=== PATIENT | female | born 1970 | race African-American/Black ===

== ENCOUNTER 2018-06-18 12:23 | Inpatient (IN) | payer MEDICARE, MEDICAID ==
[~2018-06-18] VITALS: Ht 147.3 cm; Wt 71.2 kg
[~2018-06-18 12:23] MED LIST: ALBU18HF2 IH; ALBU6.7H INH; ALPR0.25 PO; AMLO5TAB4 PO; AMLO5TAB88 MT; BUSP15TA3 MT; MORP10CA8 MT; MORP15TA67 PO; TRAZ-213 MT; ZOLP5TAB8 PO
[2018-06-18] MEDS ORDERED: ALBUTEROL (0.083%) 2.5MG/3ML NEB HHN STA (12:27)
[2018-06-18] MEDS ORDERED: IPRATROPIUM BROMIDE (0.02%) 0.5MG/2.5ML NEB HHN STA (12:27)
[2018-06-18] MEDS ORDERED: METHYLPREDNISOLONE SOD SUCC 125 MG/2 ML VIAL IV STA (12:27)
[2018-06-18] MEDS ORDERED: IPRATROPIUM BROMIDE (0.02%) 0.5MG/2.5ML NEB ONE (12:35)
[2018-06-18] MEDS ORDERED: ALBUTEROL (0.083%) 2.5MG/3ML NEB ONE (12:35)
[2018-06-18] MEDS ORDERED: MAGNESIUM 2 G PREMIX 50 ML IV ONE (12:45)
[2018-06-18 13:05] LABS: BASOPHILS % 0.5 % (0.0-2.0); EOSINOPHILS % 7.6 % (0.0-5.0); HEMATOCRIT. 47.3 % (36.0-48.0); HEMOGLOBIN. 16.1 g/dL (12.0-16.0); MEAN CORPUSCULAR HEMOGLOBIN 31.2 pg (28.0-32.0); MEAN CORPUSCULAR VOLUME 91.5 fL (81.0-99.0); MEAN PLATELET VOLUME 8.3 fl (7.4-10.4); NEUTROPHILS % 51.9 % (40.0-76.0); PLATELET 277 x1000/uL (130-400); RED BLOOD CELL COUNT 5.16 mill/uL (4.2-5.4)
[2018-06-18 13:13] LABS: CHLORIDE 107 mEq/L (98-107)
[2018-06-18] MEDS ORDERED: ALBUTEROL (0.5%) 2.5MG/0.5ML NEB HHN ONE (14:00)
[2018-06-18] MEDS ORDERED: MAGNESIUM/ALUMINUM HYDROXIDE/SIMETHICONE 30ML UDC PO PRN (16:30)
[2018-06-18] MEDS ORDERED: GUAIFENESIN 200MG/10ML SUGAR FREE UDC PO PRN (16:30)
[2018-06-18] MEDS ORDERED: NA PHOS,M-B/NA PHOS,DI-BA ENEMA 118ML PR PRN (16:30)
[2018-06-18] MEDS ORDERED: ACETAMINOPHEN 650MG SUPP PR PRN (16:30)
[2018-06-18] MEDS ORDERED: LORAZEPAM 0.5MG TABLET PO PRN (16:30)
[2018-06-18] MEDS ORDERED: IPRATROPIUM/ALBUTEROL 0.5-3(2.5)MG/3ML NEB INH PRN ×2 (16:30)
[2018-06-18] MEDS: HYDROCODONE/ACETAMINOPHEN 5/325MG TABLET PO PRN (18:16)
[2018-06-18] MEDS ORDERED: HYDROMORPHONE HCL/PF 2MG/ML CPJ IV NR (20:30)
[2018-06-18 22:17] VITALS: BP 141/93
[2018-06-18] MEDS ORDERED: DULO30CA51 PO (22:44)
[2018-06-18] MEDS ORDERED: OXYC-105 PO (22:46)
[2018-06-18] MEDS ORDERED: AMIT100T2 PO (22:47)
[2018-06-18] MEDS ORDERED: AMOX1TAB16 PO (22:48)
[2018-06-18] MEDS ORDERED: BUPR-84 PO (22:50)
[2018-06-18] MEDS ORDERED: P20 PO (22:52)
[2018-06-18] MEDS ORDERED: UMEC1DIS IH (22:53)
[2018-06-18] MEDS ORDERED: ALBU18HF2 IH (22:54)
[2018-06-18] MEDS: AMLODIPINE 5MG TABLET PO SCH (23:00)
[2018-06-18] MEDS: ENOXAPARIN 40MG/0.4ML SYR SUBCUT SCH (23:00)
[2018-06-18] MEDS: GABAPENTIN 100MG CAPSULE PO SCH (23:37)
[2018-06-18] MEDS: METHYLPREDNISOLONE SOD SUCC 40 MG/ML VIAL IV SCH (23:37)
[2018-06-18] MEDS: FAMOTIDINE 20MG/2ML VIAL IV SCH (23:38)
[2018-06-18] MEDS: LEVOFLOXACIN 500MG PREMIX 100 ML IV SCH (23:38)
[2018-06-19] VITALS (7 sets, daily range): BP systolic 128–148; BP diastolic 79–95
[2018-06-19] MEDS: HYDROMORPHONE HCL/PF 2MG/ML CPJ IV PRN ×5 (01:04→23:20)
[2018-06-19] MEDS: IPRATROPIUM/ALBUTEROL 0.5-3(2.5)MG/3ML NEB HHN SCH ×7 (01:20→23:46)
[2018-06-19] MEDS: ZOLPIDEM TARTRATE 5MG TABLET PO PRN (01:51)
[2018-06-19] MEDS: HYDROCORTISONE ACETATE 25MG SUPP PR SCH ×2 (04:36→22:52)
[2018-06-19 04:58] LABS: CLARITY URINE CLOUDY (CLEAR); COLOR URINE YELLOW (YELLOW); KETONES URINE 1+ (NEGATIVE); LEUKOCYTE ESTERASE URINE NEGATIVE (NEGATIVE); NITRITE URINE NEGATIVE (NEGATIVE); OCCULT BLOOD URINE NEGATIVE (NEGATIVE); PROTEIN URINE 1+ (NEGATIVE); SPECIFIC GRAVITY URINE 1.044 (1.005-1.030); UROBILINOGEN URINE 0.2 E.U./dL (0.2-1.0)
[2018-06-19 04:59] LABS: *AMPHETAMINES SCREEN URINE NEGATIVE (NEGATIVE); *BARBITURATES SCREEN URINE NEGATIVE (NEGATIVE); *BENZODIAZEPINES SCREEN URINE NEGATIVE (NEGATIVE); *COCAINE SCREEN URINE NEGATIVE (NEGATIVE); METHADONE URINE SCREEN NEGATIVE (NEGATIVE)
[2018-06-19 05:00] LABS: PHENCYCLIDINE URINE SCREEN NEGATIVE (NEGATIVE)
[2018-06-19 05:01] LABS: CANNABINOID URINE SCREEN PRESUMTIVE POSITIVE (NEGATIVE); OPIATES URINE SCREEN PRESUMTIVE POSITIVE (NEGATIVE)
[2018-06-19] MEDS: METHYLPREDNISOLONE SOD SUCC 40 MG/ML VIAL IV SCH ×3 (05:15→21:09)
[2018-06-19] MEDS: DIPHENHYDRAMINE 50MG/ML VIAL IV PRN ×3 (06:24→21:22)
[2018-06-19 06:58] LABS: BASOPHILS % 0.1 % (0.0-2.0); HEMATOCRIT. 41.2 % (36.0-48.0); HEMOGLOBIN. 13.9 g/dL (12.0-16.0); LYMPHOCYTES % 10.5 % (20.0-50.0); MEAN CORPUSCULAR HEMOGLOBIN 30.5 pg (28.0-32.0); MEAN CORPUSCULAR VOLUME 90.1 fL (81.0-99.0); MEAN PLATELET VOLUME 8.6 fl (7.4-10.4); MONOCYTES % 1.3 % (2.0-8.0); NEUTROPHILS % 88.1 % (40.0-76.0); PLATELET 303 x1000/uL (130-400); RED BLOOD CELL COUNT 4.58 mill/uL (4.2-5.4)
[2018-06-19 07:08] LABS: CHLORIDE 104 mEq/L (98-107)
[2018-06-19 07:22] LABS: LDL CHOLESTEROL 82 mg/dL (5-100)
[2018-06-19 07:23] LABS: HDL CHOLESTEROL 61 mg/dL (40-59); T4 FREE 0.88 ng/dL (0.76-1.46)
[2018-06-19] MEDS: BUDESONIDE 0.5MG/2ML NEB HHN SCH ×2 (08:29→20:36)
[2018-06-19] MEDS: NICOTINE 7MG PATCH TD SCH (09:00)
[2018-06-19] MEDS: AMLODIPINE 5MG TABLET PO SCH (09:00)
[2018-06-19] MEDS: GABAPENTIN 100MG CAPSULE PO SCH ×2 (09:07→21:09)
[2018-06-19] MEDS: LORATADINE 10MG TABLET PO SCH (09:07)
[2018-06-19] MEDS: FAMOTIDINE 20MG/2ML VIAL IV SCH ×2 (09:07→21:09)
[2018-06-19 11:54] LABS: BG BASE EXCESS 0.6 mmol/L (-2.0-2.0); BG CARBOXYHEMOGLOBIN 0.6 % (0.5-1.5); BG DEOXYHEMOGLOBIN 5.3 % (0.0-5.0); BG FRACTION INSPIRED OXYGEN 21; BG HCO3 ACT 23.7 mmol/L (22.0-26.0); BG METHEMOGLOBIN 0.2 % (0.0-1.5); BG OXYGEN SATURATION 94.7 % (92.0-98.5); BG OXYHEMOGLOBIN 93.9 % (94.0-97.0); BG PCO2 33.6 mmHg (35.0-45.0); BG PH 7.467 (7.350-7.450); BG PO2 70.2 mmHg (75.0-100.0); BG SAMPLE SITE RIGHT RADIAL; BG TOTAL HEMOGLOBIN 14.1 g/dL (12.0-18.0); BG VENT MODE ROOM AIR
[2018-06-19] MEDS: LOSARTAN POTASSIUM 50 MG TABLET PO SCH (18:21)
[2018-06-19] MEDS: MONTELUKAST SODIUM 10MG TABLET PO SCH (18:21)
[2018-06-19] MEDS ORDERED: LORAZEPAM 0.5MG TABLET PO PRN (20:30)
[2018-06-19] MEDS: ENOXAPARIN 40MG/0.4ML SYR SUBCUT SCH (21:00)
[2018-06-20] VITALS (7 sets, daily range): BP systolic 125–143; BP diastolic 81–98
[2018-06-20] MEDS: ZOLPIDEM TARTRATE 5MG TABLET PO PRN ×2 (00:18→23:41)
[2018-06-20] MEDS: LEVOFLOXACIN 500MG PREMIX 100 ML IV SCH (00:55)
[2018-06-20] MEDS: IPRATROPIUM/ALBUTEROL 0.5-3(2.5)MG/3ML NEB HHN SCH ×5 (03:16→21:43)
[2018-06-20] MEDS: METHYLPREDNISOLONE SOD SUCC 40 MG/ML VIAL IV SCH ×3 (06:16→23:03)
[2018-06-20 08:20] LABS: HEMATOCRIT 41.7 % (36.0-48.0); MEAN CORPUSCULAR HEMOGLOBIN 30.7 pg (28.0-32.0); MEAN CORPUSCULAR VOLUME 91.6 fL (81.0-99.0); PLATELET 319 x1000/uL (130-400); RED BLOOD CELL COUNT 4.55 mill/uL (4.2-5.4); RED CELL DISTRIBUTION WIDTH 13.1 % (11.6-14.6)
[2018-06-20] MEDS: HYDROCORTISONE ACETATE 25MG SUPP PR SCH ×2 (09:00→20:42)
[2018-06-20] MEDS: NICOTINE 7MG PATCH TD SCH (09:00)
[2018-06-20] MEDS: LOSARTAN POTASSIUM 50 MG TABLET PO SCH (10:39)
[2018-06-20] MEDS: FAMOTIDINE 20MG/2ML VIAL IV SCH ×2 (10:40→20:43)
[2018-06-20] MEDS: GABAPENTIN 100MG CAPSULE PO SCH ×2 (10:40→20:42)
[2018-06-20] MEDS: DOCUSATE SODIUM 100MG CAPSULE PO PRN ×2 (10:40→16:32)
[2018-06-20] MEDS: LORATADINE 10MG TABLET PO SCH (10:40)
[2018-06-20 10:57] LABS: CHLORIDE 101 mEq/L (98-107)
[2018-06-20] MEDS: BUDESONIDE 0.5MG/2ML NEB HHN SCH ×2 (11:05→21:43)
[2018-06-20] MEDS: ONDANSETRON HCL 4MG/2ML INJ IV PRN (11:37)
[2018-06-20] MEDS: DIPHENHYDRAMINE 50MG/ML VIAL IV PRN (11:38)
[2018-06-20] MEDS: HYDROCODONE/ACETAMINOPHEN 5/325MG TABLET PO PRN ×2 (13:37→20:43)
[2018-06-20] MEDS: DILTIAZEM HCL 30MG TABLET PO SCH ×2 (16:31→23:04)
[2018-06-20] MEDS: MONTELUKAST SODIUM 10MG TABLET PO SCH (16:32)
[2018-06-20] MEDS: HYDROMORPHONE HCL/PF 2MG/ML CPJ IV PRN ×2 (16:48→23:04)
[2018-06-20] MEDS: ENOXAPARIN 40MG/0.4ML SYR SUBCUT SCH (21:00)
[2018-06-21] VITALS: BP 110/60
[2018-06-21] MEDS: LEVOFLOXACIN 500MG PREMIX 100 ML IV SCH (01:26)
[2018-06-21] MEDS: IPRATROPIUM/ALBUTEROL 0.5-3(2.5)MG/3ML NEB HHN SCH ×6 (01:35→20:12)
[2018-06-21] MEDS: ACETAMINOPHEN 325MG TABLET PO PRN ×2 (02:09→22:24)
[2018-06-21] MEDS: DIPHENHYDRAMINE 50MG/ML VIAL IV PRN ×2 (02:09→10:35)
[2018-06-21 04:00] VITALS: BP_SYST 138; BP_DIAS 76; BP_DIAS 93
[2018-06-21] MEDS: METHYLPREDNISOLONE SOD SUCC 40 MG/ML VIAL IV SCH ×3 (05:31→22:02)
[2018-06-21] MEDS: DILTIAZEM HCL 30MG TABLET PO SCH ×3 (05:32→22:03)
[2018-06-21 08:08] VITALS: BP 140/96
[2018-06-21 08:09] LABS: HEMATOCRIT 39.3 % (36.0-48.0); HEMOGLOBIN 13.4 g/dL (12.0-16.0); MEAN CORPUSCULAR HEMOGLOBIN 30.7 pg (28.0-32.0); MEAN CORPUSCULAR VOLUME 90.3 fL (81.0-99.0); PLATELET 282 x1000/uL (130-400); RED BLOOD CELL COUNT 4.36 mill/uL (4.2-5.4)
[2018-06-21] MEDS: NICOTINE 7MG PATCH TD SCH (08:47)
[2018-06-21] MEDS: FAMOTIDINE 20MG/2ML VIAL IV SCH ×2 (08:48→20:48)
[2018-06-21] MEDS: GABAPENTIN 100MG CAPSULE PO SCH ×2 (08:48→20:48)
[2018-06-21] MEDS: HYDROCORTISONE ACETATE 25MG SUPP PR SCH ×2 (08:48→20:48)
[2018-06-21] MEDS: LORATADINE 10MG TABLET PO SCH (08:48)
[2018-06-21 08:57] LABS: CHLORIDE 100 mEq/L (98-107)
[2018-06-21] MEDS: HYDROMORPHONE HCL/PF 2MG/ML CPJ IV PRN ×3 (09:02→20:49)
[2018-06-21] MEDS: BUDESONIDE 0.5MG/2ML NEB HHN SCH ×2 (09:07→20:12)
[2018-06-21 11:39] VITALS: BP 144/94
[2018-06-21] MEDS: ONDANSETRON HCL 4MG/2ML INJ IV PRN (14:56)
[2018-06-21 16:15] VITALS: BP 128/84
[2018-06-21] MEDS: MONTELUKAST SODIUM 10MG TABLET PO SCH (17:19)
[2018-06-21 20:00] VITALS: BP 122/48
[2018-06-21] MEDS: ENOXAPARIN 40MG/0.4ML SYR SUBCUT SCH (20:50)
[2018-06-21] MEDS: ZOLPIDEM TARTRATE 5MG TABLET PO PRN (22:24)
[2018-06-22] VITALS: BP 129/80
[2018-06-22] MEDS: IPRATROPIUM/ALBUTEROL 0.5-3(2.5)MG/3ML NEB HHN SCH ×5 (00:44→16:54)
[2018-06-22] MEDS: LEVOFLOXACIN 500MG PREMIX 100 ML IV SCH (01:28)
[2018-06-22] MEDS: HYDROMORPHONE HCL/PF 2MG/ML CPJ IV PRN ×2 (03:08→15:17)
[2018-06-22 04:00] VITALS: BP 141/85
[2018-06-22] MEDS: DILTIAZEM HCL 30MG TABLET PO SCH ×2 (05:11→12:27)
[2018-06-22] MEDS: METHYLPREDNISOLONE SOD SUCC 40 MG/ML VIAL IV SCH ×2 (05:11→12:27)
[2018-06-22] MEDS: DIPHENHYDRAMINE 50MG/ML VIAL IV PRN ×2 (05:24→13:08)
[2018-06-22 08:00] VITALS: BP 140/86
[2018-06-22] MEDS: NICOTINE 7MG PATCH TD SCH (08:04)
[2018-06-22] MEDS: GABAPENTIN 100MG CAPSULE PO SCH (08:04)
[2018-06-22] MEDS: HYDROCORTISONE ACETATE 25MG SUPP PR SCH (08:04)
[2018-06-22] MEDS: FAMOTIDINE 20MG/2ML VIAL IV SCH (08:04)
[2018-06-22] MEDS: LORATADINE 10MG TABLET PO SCH (08:04)
[2018-06-22 12:24] VITALS: BP 142/86
[2018-06-22 16:30] VITALS: BP 132/82
[2018-06-22 17:13] VITALS: BP 132/82
[2018-06-22] MEDS: MONTELUKAST SODIUM 10MG TABLET PO SCH (17:20)
== END 2018-06-22 18:05 | disposition home or self-care (01) | DRG 193 ==
LOC: EDBD 12:23 → ER 12:23 → 6WST 13:53 → EDBEDREQSVC 14:12 → EDBEDREQ 14:12 → ENRESERV 20:56
PROVIDERS: ADMIT Internal Medicine; ATTEND Internal Medicine
PROC: 5A09357 Assistance with Respiratory Ventilation, Less than 24 Consecutive Hours, Continuous Positive Airway Pressure (ICD-10-PCS; principal; 2018-06-18)
DX: J18.9 Pneumonia, unspecified organism (principal); J96.00 Acute respiratory failure, unspecified whether with hypoxia or hypercapnia; J44.0 Chronic obstructive pulmonary disease with (acute) lower respiratory infection; J45.901 Unspecified asthma with (acute) exacerbation; F11.20 Opioid dependence, uncomplicated; J44.1 Chronic obstructive pulmonary disease with (acute) exacerbation; I10 Essential (primary) hypertension; D72.829 Elevated white blood cell count, unspecified; M79.7 Fibromyalgia; F17.210 Nicotine dependence, cigarettes, uncomplicated; F32.9 Major depressive disorder, single episode, unspecified; R00.0 Tachycardia, unspecified; F19.10 Other psychoactive substance abuse, uncomplicated; F41.9 Anxiety disorder, unspecified; R73.9 Hyperglycemia, unspecified; Z79.51 Long term (current) use of inhaled steroids; Z79.899 Other long term (current) drug therapy; Z90.710 Acquired absence of both cervix and uterus; Z91.19 Patient's noncompliance with other medical treatment and regimen
CPT/HCPCS: 36415; 36600; 71045; 80048; 80061; 80305; 82375; 82805; 83036; 83880; 84439; 84443; 84484; 85027; 87804; 93005; 93306; 93970; 94640; 94644; 94660; 96365; 96375; 97162; 99285; C1893; J1170; J1200; J1650; J1956; J2405; J2920; J2930; J3475; J3490; J7050; J7611; J7620; J7626

== ENCOUNTER 2019-05-26 16:33 | Emergency (ER) | payer MEDICARE, OTHER ==
[~2019-05-26] VITALS: Ht 147.3 cm; Wt 73.0 kg
[~2019-05-26 16:33] MED LIST changes: +AMIT100T2 PO; +AMOX1TAB16 PO; +BUPR-84 PO; +DULO30CA52 PO; +OXYC-105 PO; +P20 PO; +UMEC1DIS IH
[2019-05-26] MEDS ORDERED: IPRATROPIUM BROMIDE (0.02%) 0.5MG/2.5ML NEB HHN STA (18:34)
[2019-05-26] MEDS ORDERED: KETOROLAC 30MG/ML VIAL IV STA (18:34)
[2019-05-26] MEDS ORDERED: ALBUTEROL (0.083%) 2.5MG/3ML NEB HHN STA (18:34)
[2019-05-26] MEDS ORDERED: METHYLPREDNISOLONE SOD SUCC 125 MG/2 ML VIAL IV STA (18:34)
[2019-05-26 18:57] LABS: BASOPHILS % 0.5 % (0.0-2.0); CHLORIDE 112 mEq/L (98-107); HEMATOCRIT. 37.8 % (36.0-48.0); HEMOGLOBIN. 12.9 g/dL (12.0-16.0); LYMPHOCYTES % 26.4 % (20.0-50.0); MEAN CORPUSCULAR HEMOGLOBIN 31.2 pg (28.0-32.0); MEAN CORPUSCULAR VOLUME 91.2 fL (81.0-99.0); MEAN PLATELET VOLUME 8.4 fl (7.4-10.4); MONOCYTES % 6.8 % (2.0-8.0); NEUTROPHILS % 60.3 % (40.0-76.0); PLATELET 218 x1000/uL (130-400); RED BLOOD CELL COUNT 4.14 mill/uL (4.2-5.4); RED CELL DISTRIBUTION WIDTH 13.1 % (11.6-14.6)
[2019-05-26 21:23] VITALS: BP 132/86
== END 2019-05-26 21:31 | disposition home or self-care (01) ==
LOC: ER 16:33
DX: J44.1 Chronic obstructive pulmonary disease with (acute) exacerbation (principal); M79.7 Fibromyalgia; I10 Essential (primary) hypertension; F17.200 Nicotine dependence, unspecified, uncomplicated; Z90.710 Acquired absence of both cervix and uterus; Z79.899 Other long term (current) drug therapy
CPT/HCPCS: 36415; 71045; 80053; 83880; 84484; 85025; 93005; 94640; 96374; 96375; 99284; J1885; J2930; J7611